=== PATIENT | male | born 1995 | race Caucasian/White ===

== ENCOUNTER 2019-06-01 08:01 | Observation (INO) | payer BC, SELFPAY ==
[2019-06-01] VITALS (8 sets, daily range): BP systolic 130–147; BP diastolic 67–89; PULSE 63–102; RESP 16–18; TEMP 36.7–37.3; O2SAT 100; BMI 23.1; BMI 23.3
--- NOTE | 2019-06-01 08:15 | CT_ITS ---
STUDY: CT ABDOMEN AND PELVIS WITH CONTRAST REASON FOR EXAM: Male, 24 years old. Epigastric pain. RADIATION DOSAGE (If Supplied By Facility): CTDIvol = ( 9.87 ) mGy, DLP = ( 509.13 ) mGycm TECHNIQUE: Transaxial images were obtained from the dome of the diaphragm to the symphysis pubis with oral contrast. 100 IV/Oral Isovue 300 was administered. Sagittal and coronal images were reconstructed. Individualized dose optimization techniques were used for this CT. COMPARISON: None. FINDINGS: The visualized lung bases are unremarkable. The visualized portions of the heart are within normal limits. Normal liver. Normal gallbladder and extrahepatic biliary system. Normal spleen. Normal pancreas. Normal bilateral adrenal glands. Normal right kidney. Normal left kidney. There is a small hiatal hernia. Normal small intestine. Normal colon. There is a tubular, thick-walled appendix (>7mm), consistent with acute appendicitis. An appendicolith is seen in the proximal portion of the appendix measuring 3.5 mm. A small amount of fluid is seen in the right lower quadrant and in the pelvis. There is also evidence of a mesenteric lymphadenitis in the right lower quadrant. Normal abdominal aorta. Normal inferior vena cava. Normal retroperitoneum. Normal urinary bladder. Normal abdominal wall. Normal osseous structures. CT/Abdomen/Pelvis WITH Contrast IMPRESSION: Findings in keeping with acute appendicitis. An appendicolith is seen in the proximal portion of the appendix. Surrounding phlegmon and inflammatory changes. Small amount of free fluid is seen in the right lower quadrant as well as in the right hemipelvis. Electronically Signed: Carter Carrillo, at 10:15 EDT , Service support ,
--- NOTE | 2019-06-01 08:17 | ED.VISSUMM ---
- ER Visit Summary Date of Service: 06/01/19 Chief Complaint: Abdominal pain History of Present Illness: The patient is a 24 M with a 2-day history of generalized abdominal cramping that is now more constant and moving to the right lower quadrant. He denies fever. He has had decreased appetite but is able to eat without becoming nauseated. Past history is significant for asthma as a child. No prior surgical history. Physical Examination: Vital signs unremarkable. He is afebrile. Patient sitting upright in bed no acute distress. Heart is regular rate and rhythm. Lung sounds are clear. Abdomen is soft with tenderness in the right lower quadrant. No guarding or rebound. Hypoactive bowel sounds. Test Results: CBC was normal white count 10.4 with 76% neutrophils. Chemistry studies normal. Urinalysis normal. CT abdomen pelvis with contrast reveals acute appendicitis with a thick-walled appendix and appendicolith noted. Emergency Department Course and Treatment: Patient declined anything for pain or nausea while the emergency room. He is given a dose of Zosyn and surgery is on page. Treatment Plan: [] Disposition: Admit Impression: Appendicitis This note was generated with [employer] dictation software. It may contain incorrect words, spelling, and punctuation that were not noted in review of the chart prior to signing
[2019-06-01 08:54] LABS: Absolute Lymphocyte Count 1.24 X10^3/ul (0.83-4.51); Absolute Neutrophil Count 7.9 X10^3/uL (2.0-7.7); Basophil# 0.02 X10^3/uL; Basophil% 0.2 % (0-1); Eosinophil# 0.08 X10^3/uL; Eosinophils% 0.8 % (0-5); Hematocrit 40.5 % (40-54); Hemoglobin 13.8 g/dl (13.0-16.5); Lymphocyte # 1.24 X10^3/ul (4.0); Mean Corp Hgb Conc 34.1 g/gl (32-36); Mean Corpuscular Hgb 30.5 pg (27.0-32.0); Mean Corpuscular Volume 89.4 fL (80-94); Mean Platelet Vol. 10.1 fl (6.2-12.0); Monocyte# 1.16 X10^3/uL; Monocyte% 11.2 % (0-10); Neutrophil # 7.86 X10^3/uL (2.7-7.7); Neutrophil % 75.7 % (47-70); POSITIVE COUNT NO; POSITIVE DIFFERENTIAL NO; POSITIVE MORPHOLOGY NO; Platelet Count 246 K/mm3 (150-450); RBC Distribution Width CV 12.5 % (11.6-14.6); Red Blood Count 4.53 M/mm3 (4.6-6.2); White Blood Count 10.4 K/mm3 (4.4-11.0)
[2019-06-01] MEDS: 0.9% Normal Saline 1,000 ML 150 ML IV (08:59)
[2019-06-01 09:08] LABS: Anion Gap 4 (5-15); BUN 12 mg/dL (7-18); BUN/Creat Ratio 10.6 RATIO (10-20); Calcium,Total 9.2 mg/dL (8.5-10.1); Chloride 104 mmol/L (98-107); Creatinine, Serum 1.13 mg/dL (0.70-1.30); EST Glomerular Filtration Rate 84 mL/min (>60); Est Glom Filt Rate - Afr Amer 102 mL/min (>60); Estimated Creatinine Clearance 115.41 ml/min; Glucose 89 mg/dL (74-106); Sodium Level 136 mmol/L (136-145)
[2019-06-01 09:08] LABS: Bacteria 0 SEEN /hpf (None Seen); Mucous, Urine 0 SEEN /hpf (<or=2+); Squamous Epithelial Cells - UA 0 SEEN /hpf (0-5); White Blood Cells 0 SEEN /hpf (0-5)
[2019-06-01 09:11] LABS: Color, Urine Yellow (Yellow); Glucose, Dipstick Normal (Normal); Ketone-Dipstick Negative (Negative); Leukocyte Esterase-Dipstick Negative /ul (Negative); Nitrite-Dipstick Negative (Negative); Occult Blood-Urine 10 /ul (Negative); Protein-Dipstick Negative (Negative); Urine Bilirubin Dipstick Negative (Negative); Urine Clarity Clear (Clear); Urine Urobilinogen Normal (Normal)
[2019-06-01 09:22] LABS: Red Blood Cells-Urine 0-5 SEEN /hpf (0-5)
--- NOTE | 2019-06-01 11:35 | HP.PCM_ITS ---
Problem List (1) Acute appendicitis Status: Acute History of Present Illness Date of Admission: 06/01/19 Chief Complaint: RLQ pain The patient is a 24 year old M who presents with a 2 day history of abdominal pain. Patient stated on Thursday night following dinner he noted bloating. He ignored the increased gas until Thursday when it started to cause pain at the umbilicus. He noted by Thursday night the pain localized in the right lower quadrant. He noted indigestion last night which he tried pepto and mireya beer last night without relief. Patient noted by 0200 AM this morning he had pain with walking to the bathroom. Patient noted over the weekend he had felt more fatigued which he thought this may be from working too much. CT scan of the abdomen/pelvis confirms acute appendicitis. An appendicolith is seen in the proximal portion of the appendix. Surrounding phlegmon and inflammatory changes. Small amount of free fluid is seen in the right lower quadrant as well as in the right hemipelvis. 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 He works out frequently. He notes only surgery has been removal of wisdom teeth. He denies other previous surgery or fractured bones. He denies taking medication on a routine basis. Patient's mother is present with him. She notes a history of DVT's for herself and notes her daughter has factor V Leiden. The patients mother along with the patient have never been diagnosed with this. Patient denies previous history of DVT's. Past Medical History Allergies No Known Allergies Allergy (Verified 06/01/19 08:04) Home Medications: Ambulatory Orders Medication Instructions Recorded NK 06/01/19 Surgical History: - - [place] teeth Psychiatric History: No pertinent psych hx Lives: Roommate Smoking Status: Never smoker - *Family History Maternal History Items: No pertinent history Paternal History Items: No pertinent history Review of Systems Constitutional: Reports: Anorexia, Fatigue. Denies: Fever HEENT: Denies: Head Aches, Sinus Congestion, Sinus Drainage Cardiovascular: Denies: Chest Pain, Palpitations Respiratory: Denies: Cough, Shortness of breath at rest, Sputum production Gastrointestinal: Reports: Abdominal Pain, Nausea Genitourinary: Reports: Hesitancy Musculoskeletal: Denies: Joint Pain, Joint Tenderness Skin: Denies: Rash, Wounds Neurological: Denies: Numbness, Tingling, Focal weakness Psychiatric: Denies: Anxiety, Depression, Homicidal Ideations, Suicidal Ideatio ns Hematologic/ Lymphatic: Denies: Easy Bruising, Easy Bleeding VTE Information - Inpt Only VTE Present on Admission: Yes VTE Mechan Device Prophylaxis: SCD's Patient Problems: Active and Suspected Problems Acute appendicitis (Acute) - Physical Exam General: Alert, Oriented x3, Cooperative HEENT: Atraumatic, PERRLA, EOMI, Normocephalic Neck: Supple, No JVD, Negative Carotid Bruits Lungs: Clear to auscultation, Normal air movement Cardiovascular: Regular rate, No murmurs Abdomen: Soft, Hypoactive Bowel Sounds, Tender - RLQ Extremities: No edema, Capillary Refill Less than 3 Seconds Skin: No rashes, No breakdown Musculoskeletal: No Tenderness to Palpation of Joints or Extremities Neurological: Neuro grossly intact Psych/Mental Status: Normal Affect, Appropriate, Anxious Vital Signs Temp Pulse Resp BP Pulse Ox 98.7 F 80 16 147/80 H 100 06/01/19 08:02 06/01/19 11:25 06/01/19 11:25 06/01/19 11:25 06/01/19 11:25 Oxygen Delivery Method Room Air Weight: 180 lb Body Mass Index (BMI) 23.1 Laboratory Tests Past 24 Hrs 06/01/19 06/01/19 06/01/19 08:38 08:38 09:00 WBC 10.4 RBC 4.53 L Hgb 13.8 Hct 40.5 MCV 89.4 MCH 30.5 MCHC 34.1 RDW 12.5 RDW Differential 40.0 Plt Count 246 MPV 10.1 Immature Gran % (Auto) 0.100 Neut % (Auto) 75.7 H Lymph % (Auto) 12.0 L [place] % (Auto) 11.2 H Eos % (Auto) 0.8 Baso % (Auto) 0.2 Absolute Neuts (auto) 7.9 H Absolute Lymphs (auto) 1.24 Total Counted Not Reportable Sodium 136 Potassium 4.0 Chloride 104 Carbon Dioxide 28.0 Anion Gap 4 L BUN 12 Creatinine 1.13 Estim Creat Clear Calc 115.41 Est GFR (MDRD) Af Amer 102 Est GFR (MDRD) Non-Af 84 BUN/Creatinine Ratio 10.6 Glucose 89 Calcium 9.2 Urine Color Yellow Urine Clarity Clear Urine pH 7.0 Ur Specific [place] 1.010 Urine Protein Negative Urine Glucose (UA) Normal Urine Ketones Negative Urine Occult Blood 10 H Urine Nitrite Negative Urine Bilirubin Negative Urine Urobilinogen Normal Ur Leukocyte Esterase Negative Urine RBC 0-5 SEEN Urine WBC 0 SEEN Ur Squamous Epith Cells 0 SEEN Urine Bacteria 0 SEEN Urine Mucus 0 SEEN Assessment/Plan All Active Problems Acute appendicitis (Acute) I have been consulted in conjunction with Dr. Guerrero Impression: Right lower quadrant pain, etiology acute appendicitis. Plan: Patient was discussed with Dr. Guerrero. Dr. Guerrero will plan to perform a laparoscopic appendectomy. Procedure details, risks and benefits have been explained to the patient and his mother. Patient and his mother have had the opportunity to ask and have questions answered. Patient verbally understands and agrees with the plan. Patient is nervous to have surgery. He was scheduled to fly to [place] for work next Thursday. Thank you for allowing us to participate in this patient's care. Code Visit Office Visits / Consults: [id number] IP Consult L3 - No charge/surgery
--- NOTE | 2019-06-01 13:15 | APP_PTH ---
PATIENT: CHELA BALDERRAMA LOC: MS3 U#:[id number] AGE/SX: 24/M ROOM: [facility] RE06/01/[address]: Dr. Micha Guerrero MD : 1995 BED: 1 DIS: 06/03/2019 SPEC #: [id number] RECD: 06/01/19 16:39 STATUS: TASHA REIris #: [id number] MELVA: 06/01/19 13:[address]: Micha Guerrero DEPT: SURGICAL PATHOLOGY RECD BY: Vicente Santoro ENTERED: 06/03/19 14:59 SP TYPE: APPENDIX OTHR DR: No Primary Care Phys Tissues: Appendix, NOS Procedures: Surgery Specimen Level III HEADER OPERATION: Laparoscopic appendectomy PRE-OP DIAGNOSIS: Acute appendicitis TISSUE SUBMITTED: Appendix MICROSCOPIC DIAGNOSIS Appendix, appendectomy: Acute appendicitis and periappendicitis. AM:lisseth 06/06/19 MICROSCOPIC DESCRIPTION Slides are reviewed. GROSS DESCRIPTION Received is one container labeled with the patient's name and designated appendix. The specimen consists of an appendix measuring 6 cm in length and approximately 1 cm in average diameter. No gross perforations are identified. The external surface is grayish-ryan most evident in its most distal portion. Serial sections reveal a patent lumen. Supervisor Denture Department sections are submitted in one cassette. / AM:lisseth 06/03/19 TC:2 CPT: 02561
--- NOTE | 2019-06-01 13:45 | DCINST_ITS ---
Discharge Diet: Light diet - advance as tolerated - if you have questions about your diet instructions, please talk to you doctor. Discharge Activity: May Not Drive - for 3-5 days or while taking narcotic pain medicine. May shower in (days): 1 Lifting Restrictions: 10 pounds Call your doctor if your incision/area has: Continuous Slow Oozing, Sudden Increased Bleeding, Increased Pain/ Swelling, Increased Redness, Foul Smelling Discharge Call your doctor if you observe: Fever of 101 or Higher Suture Line Care: Avoid Pulling/Pushing, Avoid Pinching/Bending Additional Dressing/Incision Instructions:: Change or remove dressing in 4 days. Leave steri-strips in place for 1 week. Allergies/Adverse Reactions: Allergies No Known Allergies Allergy (Verified 06/01/19 08:04) Medications to take at Discharge NK 06/01/19 Primary Care Physician: Care Physician,No Primary [Primary Care Provider] - Test Results: Test results from this visit will be discussed in further detail at your follow- up appointment, if applicable. Please Follow Up With: Micha Guerrero MD - [phone] When: Call to make an appointment to be seen in about 10 days.
[2019-06-01] MEDS: Bupivacaine 0.5% PF 10 ML VIAL (15:11)
--- NOTE | 2019-06-01 15:17 | OP.PCM_ITS ---
Problem List (1) Acute appendicitis Status: Acute Qualifiers: Acute appendicitis type: with localized peritonitis Appendicitis gangrene presence: without gangrene Appendicitis perforation presence: without perforation Report of Operation Date of Procedure: 06/01/19 Pre-Operative Diagnosis: Acute appendicitis with localized phlegmon Post-Operative Diagnosis: Same Surgery/Procedure Performed:: Laparoscopic appendectomy Description of Surgical Findings:: Timeout and informed consent was obtained. 24-year-old gentleman stick now pending. He received therapeutic Zosyn in the emergency room. The abdomen was sterilely prepped and draped. 0.5% Marcaine was used as a local anesthetic. Throughout the procedure total 30 cc was used. Skin sites were pre- anesthetized. A vertical infraumbilical incision was created holding sutures of 0 Vicryl placed varies needle inserted saline drop test performed the abdomen was insufflated with CO2 to a pressure of 10 mmHg pressure. Lashay trocar inserted 10 laps concerns no concern trocar injuries. Interposition 500 ports were placed suprapubically in the low mid abdomen. The terminal ileum was densely adherent to the phlegmon of the appendix with a markedly thickened indurated mesoappendix. Blunt dissection was used to separate the terminal ileum on the appendix and appendiceal phlegmon. A window was made in the mesoappendix flush with the cecum. A 45 mL standard height stapler was inserted and used to transect and secured the cecal base. I initially try to transect the mesoappendix but there was so much induration could not apply the stapler. I then had a use an energy device and a Enseal device to slowly and carefully come across the mesoappendix. Hemostasis was carefully assured with the Enseal. The appendix was placed in a retrieval bag. The right lower quadrant was carefully irrigated aspirated carefully inspected and further Enseal was used on the peritoneum to assure hemostasis. The abdomen was allowed to deflate of the CO2 and several minutes were allowed to pass and then the abdomen was reinsufflated in the right lower quadrant appendiceal area was inspected. There had been no onset of bleeding. The appendix it was removed to the umbilicus fascial enlargement was required because of the appendiceal phlegmon and mass that was removed. The remaining trochars removed under visualization the abdomen was allowed to deflate of the CO2. The fascia at the umbilicus was approximated with running 0 Vicryl. Skin edges approximate interrupted 4 Monocryl subdermal stitches. Steri-Strips and Telfa and OpSite dressings applied. Sponge and instrument and needle counts were reported to the surgeon to be correct. Specimens appendix with phlegmon indurated mesoappendix. Drains none. Blood loss minimal. The patient was taken to the recovery in satisfactory condition without apparent complication. Micha Guerrero M.D., F.A.C.S. Type of Anesthesia:: General Anesthesiologist: Salima Mercer
--- NOTE | 2019-06-01 17:46 | PCM.PN.BLA ---
Progress Note Stinging at umbilicus No nausea No flatus Will mobilize and continue care Micha Guerrero M.D., F.A.C.S.
[2019-06-01] MEDS: Morphine 2 MG/ML Syringe IV (18:40)
[2019-06-01] MEDS: Lactated Ringers 1,000 ML 70 ML IV (19:35)
[2019-06-01] MEDS: HYDROcodone Bitartrate/Apap 5/325 Tablet PO (20:12)
--- NOTE | 2019-06-01 22:41 | NURSING ---
PATIENT WALKED IN HALLS X2, TOLERATED WELL
[2019-06-02] MEDS: HYDROcodone Bitartrate/Apap 5/325 Tablet PO ×5 (00:20→20:00)
[2019-06-02 02:23] VITALS: BP 123/60; PULSE 77; RESP 16; TEMP 37.1; O2SAT 98
[2019-06-02] MEDS: Lactated Ringers 1,000 ML 70 ML IV ×2 (03:46→15:56)
[2019-06-02 08:42] VITALS: BP 123/67; PULSE 73; RESP 18; TEMP 36.9; O2SAT 95
--- NOTE | 2019-06-02 08:42 | PCM.PN.SRG ---
Patient Problems: Active and Suspected Problems Acute appendicitis (Acute) Subjective: Pain is controlled. The patient has had no flatus he has only been burping. He has had no bowel movements. He is tolerating clear liquids. Objective: His abdomen is soft dressings are dry. Hypoactive bowel sounds. - Physical Exam Vital Signs Temp Pulse Resp BP Pulse Ox 98.7 F 77 16 123/60 H 98 06/02/19 02:23 06/02/19 02:23 06/02/19 02:23 06/02/19 02:23 06/02/19 02:23 Oxygen Delivery Method Room Air Weight: 182 lb Body Mass Index (BMI) 23.3 Intake and Output for Last 24 Hours 05/31/19 06/01/19 06/02/19 23:59 23:59 23:59 Intake Total 1200 / 2537 2125 / 2125 Output Total 300 / 1100 800 / 800 Balance 900 / 1437 1325 / 1325 Laboratory Tests Past 24 Hrs 06/01/19 06/01/19 06/01/19 08:38 08:38 09:00 WBC 10.4 RBC 4.53 L Hgb 13.8 Hct 40.5 MCV 89.4 MCH 30.5 MCHC 34.1 RDW 12.5 RDW Differential 40.0 Plt Count 246 MPV 10.1 Immature Gran % (Auto) 0.100 Neut % (Auto) 75.7 H Lymph % (Auto) 12.0 L [place] % (Auto) 11.2 H Eos % (Auto) 0.8 Baso % (Auto) 0.2 Absolute Neuts (auto) 7.9 H Absolute Lymphs (auto) 1.24 Total Counted Not Reportable Sodium 136 Potassium 4.0 Chloride 104 Carbon Dioxide 28.0 Anion Gap 4 L BUN 12 Creatinine 1.13 Estim Creat Clear Calc 115.41 Est GFR (MDRD) Af Amer 102 Est GFR (MDRD) Non-Af 84 BUN/Creatinine Ratio 10.6 Glucose 89 Calcium 9.2 Urine Color Yellow Urine Clarity Clear Urine pH 7.0 Ur Specific [place] 1.010 Urine Protein Negative Urine Glucose (UA) Normal Urine Ketones Negative Urine Occult Blood 10 H Urine Nitrite Negative Urine Bilirubin Negative Urine Urobilinogen Normal Ur Leukocyte Esterase Negative Urine RBC 0-5 SEEN Urine WBC 0 SEEN Ur Squamous Epith Cells 0 SEEN Urine Bacteria 0 SEEN Urine Mucus 0 SEEN Medical Necessity - Tobacco Use Smoking Status: Never smoker Assessment/Plan All Active Problems Acute appendicitis (Acute) We are going to observe him for the rest of the day. If he starts passing gas and having at least a bowel movement then we can consider discharging him. Otherwise he will more likely need to stay an extra day secondary to having such a bad phlegmon in his appendiceal area.
[2019-06-02] MEDS: Morphine 2 MG/ML Syringe IV (09:53)
[2019-06-02 14:26] VITALS: BP 142/76; PULSE 73; RESP 18; TEMP 36.7; O2SAT 95
[2019-06-02] MEDS: BENZOCAINE/MENTHOL 1 LOZENGE MUCOUS MEM (16:15)
[2019-06-02 20:06] VITALS: BP 133/76; PULSE 69; RESP 16; TEMP 36.4; O2SAT 100
[2019-06-03] MEDS: HYDROcodone Bitartrate/Apap 5/325 Tablet PO ×3 (00:10→11:28)
[2019-06-03 00:12] VITALS: BP 134/68; PULSE 62; RESP 16; TEMP 36.7; O2SAT 98
[2019-06-03 05:51] VITALS: BP 123/76; PULSE 77; RESP 16; TEMP 36.7; O2SAT 100
[2019-06-03] MEDS: Lactated Ringers 1,000 ML 70 ML IV (06:03)
--- NOTE | 2019-06-03 06:07 | PCM.PN.SRG ---
Patient Problems: Active and Suspected Problems Acute appendicitis (Acute) Objective: Pt has had a small amount of flatus, no nausea - Physical Exam Abdomen: Soft, Non Tender, Hypoactive Bowel Sounds, Distended Vital Signs Temp Pulse Resp BP Pulse Ox 98.1 F 77 16 123/76 H 100 06/03/19 05:51 06/03/19 05:51 06/03/19 05:51 06/03/19 05:51 06/03/19 05:51 Oxygen Delivery Method Room Air Weight: 182 lb Body Mass Index (BMI) 23.3 Intake and Output for Last 24 Hours 06/01/19 06/02/19 06/03/19 23:59 23:59 23:59 Intake Total 1200 / 2537 4423 / 8315 4352 / 4352 Output Total 300 / 1100 800 / 800 Balance 900 / 1437 3623 / 7515 4352 / 4352 Medical Necessity - Tobacco Use Smoking Status: Never smoker Assessment/Plan All Active Problems Acute appendicitis (Acute) Pt is just resolving ileus Will try lactulose and plan discharge later today
[2019-06-03] MEDS: Magnesium Oxide 400 MG Tablet PO (06:23)
[2019-06-03] MEDS: Docusate Sodium 100 MG Capsule 200 MG PO (06:23)
[2019-06-03] MEDS: Lactulose 20 GM/30 ML UDC PO (06:23)
[2019-06-03 07:51] VITALS: BP 136/74; PULSE 67; RESP 16; TEMP 36.7; O2SAT 98
[2019-06-03 14:23] VITALS: BP 123/71; PULSE 60; RESP 16; TEMP 36.7; O2SAT 99
== END 2019-06-03 14:35 | disposition home or self-care (01) ==
LOC: ED 11:07 → SDC 11:16 → AC 11:19 → MS3 14:09 → SDC 16:57
PROVIDERS: Admitting Provider Surgery; Emergency Provider Emergency Medicine; Visit Provider Surgery
PROC: 0DTJ4ZZ Resection of Appendix, Percutaneous Endoscopic Approach (ICD-10-PCS; CPT 44970; principal; 2019-06-01 12:55)
DX: K35.80 Unspecified acute appendicitis (principal)
CPT/HCPCS: 44970; 74177; 80048; 81001; 85025; 88304; 96361; 96374; 96376; 99218; 99284; J7030; J7120; Q9967; A4216; C1760; G0378; J2405

== ENCOUNTER 2019-06-25 10:45 | Emergency (ER) | payer BC, SELFPAY ==
[2019-06-01 17:58] VITALS: BMI 23.3
[2019-06-25 10:45] VITALS: BP 137/71; PULSE 97; RESP 18; TEMP 36.6; O2SAT 99; BMI 23.0
--- NOTE | 2019-06-25 11:13 | US_ITS ---
STUDY: SCROTUM ULTRASOUND REASON FOR EXAM: Male, 24 years old. Left testicular pain for 3 days TECHNIQUE: Ultrasound evaluation of the scrotum was performed with color Doppler and static gaona-scale imaging. COMPARISON: None. FINDINGS: RIGHT TESTICLE INTRATESTICULAR: There is a normal size of the right testicle. The right testicle measures 4.7 x 2.8 x 1.9 cm. There is a homogenous echotexture. There is normal arterial and normal venous vascularity. There is no demonstrated right testicular mass or cyst. EXTRATESTICULAR: The epididymis is normal in size. The epididymis head measures 0.9 cm. There is normal vascularity of the epididymis. There is no demonstrated epididymal cystic structure. There is a small hydrocele. There is no demonstrated varicocele. There is no demonstrated extratesticular mass or cyst. LEFT TESTICLE INTRATESTICULAR: There is a normal size of the left testicle. The left testicle measures 4.5 x 2.9 x 2.1 cm. There is a homogenous echotexture. There is normal arterial and normal venous vascularity. A 4 mm anechoic testicular cyst along the periphery is considered benign such as tunica albuginea cyst. EXTRATESTICULAR: The epididymis is normal in size. The epididymis head measures 1.3 cm. There is normal vascularity of the epididymis. There is a well-defined cystic structure (2 mm) within the epididymis, without internal echoes, consistent with an epididymal cyst. There is a small hydrocele. There are prominent extratesticular veins consistent with a varicocele. There is no demonstrated extratesticular mass or cyst. US/Testicular with Arterial Flow IMPRESSION: 1. No evidence of testicular torsion. 2. Simple, benign left testicular cyst. 3. Small left epididymal cyst. 4. Small bilateral hydroceles. 5. Left varicocele. Electronically Signed: Rashad Duckworth MD at 12:36 EDT , Service support ,
--- NOTE | 2019-06-25 11:16 | ED.VISSUMM ---
- ER Visit Summary Date of Service: 06/25/19 Chief Complaint: Left testicular mass History of Present Illness: The patient is a 24 M had a prior appendectomy earlier this month. States in the last several days he noticed when he feels like it is a possible mass or tender area on the upper aspect of the left testicle. He denies any fall or trauma. Said he noticed this since . He denies any dysuria hematuria. No discharge or STD history. No nausea, vomiting or diarrhea. No fever. Physical Examination: Vital signs are stable and afebrile. HEENT exam unremarkable. Neck nontender no lymphadenopathy. Lungs clear to auscultation bilaterally. Heart regular rhythm no murmur. Abdomen is soft and nontender. Normal bowel sounds no peritoneal signs. Remedies moves all 4. Neurovascular intact. No edema. exam. He is a circumcised male. No discharge. No lymphadenopathy. No scrotal swelling or redness. The left testicle upper pole there does appear to be an area that is firm and mildly tender. There is no obvious hernia. The inguinal canal is unremarkable. Otherwise exam unremarkable. Test Results: Left testicular ultrasound shows left testicular cyst. Left varicocele. And bilateral hydroceles. No torsion. Urinalysis shows no signs of infection and is normal. Emergency Department Course and Treatment: Ultrasound and urinalysis will be obtained. Repeat exam patient is doing well at 12:50 PM. Discussed test results both he and his father. He will be referred to urology as needed. Treatment Plan: Follow-up with urology as needed. Disposition: Discharge Impression: Left testicular and epididymal cysts This note was generated with [employer] dictation software. It may contain incorrect words, spelling, and punctuation that were not noted in review of the chart prior to signing ED Disposition - Plan for ED Patient: Referrals: Care Physician,No Primary [Primary Care Provider] -
[2019-06-25 12:01] LABS: Bacteria 0 SEEN /hpf (None Seen); Mucous, Urine 0 SEEN /hpf (<or=2+); White Blood Cells 0 SEEN /hpf (0-5)
[2019-06-25 12:05] LABS: Color, Urine Yellow (Yellow); Glucose, Dipstick Normal (Normal); Ketone-Dipstick Negative (Negative); Leukocyte Esterase-Dipstick Negative /ul (Negative); Nitrite-Dipstick Negative (Negative); Occult Blood-Urine Negative /ul (Negative); Protein-Dipstick Negative (Negative); Urine Bilirubin Dipstick Negative (Negative); Urine Clarity Clear (Clear); Urine Urobilinogen Normal (Normal)
[2019-06-25 12:10] LABS: Red Blood Cells-Urine 0-5 SEEN /hpf (0-5); Squamous Epithelial Cells - UA 0-5 SEEN /hpf (0-5)
--- NOTE | 2019-06-25 12:53 | ED.DEP ---
ED Disposition - Plan for ED Patient: Disposition: Home or Assisted Living Referrals: Uri Rollins MD [STAFF PHYSICIAN] - 1-2 Weeks Additional Instructions: Motrin and/or Tylenol for pain. Call and follow-up with urology as needed. You have a small cyst on the left testicle and epididymis. You have a small left varicocele and bilateral hydroceles.
[2019-06-25 13:01] VITALS: BP 124/63; PULSE 75; RESP 16; O2SAT 99
== END 2019-06-25 13:03 | disposition home or self-care (01) ==
PROVIDERS: Emergency Provider Emergency Medicine
DX: N44.2 Benign cyst of testis (principal); N50.3 Cyst of epididymis; N43.3 Hydrocele, unspecified; I86.1 Scrotal varices
CPT/HCPCS: 76870; 81001; 93976; 99282